=== PATIENT | male | born 1990 | race Two or more races ===

== ENCOUNTER 2024-03-25 13:13 | Emergency (ER) | payer OTHER ==
[~2024-03-25] VITALS: Ht 175.3 cm; Wt 77.6 kg
[2024-03-25 14:25] LABS: Chloride 103 mmol/L (98-107); Potassium 3.5 mmol/L (3.5-5.1); Sodium 140 mmol/L (136-145)
[2024-03-25 14:26] LABS: Anion Gap 8 (5-15); Carbon Dioxide 29 mmol/L (20-31)
[2024-03-25 14:27] LABS: Calcium 10.1 mg/dL (8.7-10.4)
[2024-03-25 14:31] LABS: BUN/Creatinine Ratio 8.8 (10.0-20.0); Blood Urea Nitrogen 8 mg/dL (9-23); Glucose 106 mg/dL (74-106)
[2024-03-25 14:34] LABS: Urine Bacteria None Seen /hpf (None Seen)
[2024-03-25 14:44] LABS: Basophils # (auto) 0 10 ^3/uL (0-0.2); Basophils % (auto) 0.3 % (0.0-2.0); Eosinophils # (auto) 0 10 ^3/uL (0-0.8); Eosinophils % (auto) 0.2 % (0.0-7.0); Hematocrit 47.4 % (41.0-53.0); Lymphocytes # (auto) 0.5 10 ^3/uL (0.4-5.4); Lymphocytes % (auto) 7.6 % (10.0-50.0); Mean Corpuscular Hemoglobin 31.2 pg (28.0-32.0); Mean Corpuscular Volume 86.8 fL (80.0-100.0); Monocytes # (auto) 0.4 10 ^3/uL (0-1.3); Monocytes % (auto) 5.8 % (0.0-12.0); Neutrophils # (auto) 5.8 10 ^3/uL (1.6-8.6); Neutrophils % (auto) 86.1 % (37.0-80.0); Nucleated Red Blood Cells % 0.4 %; Platelet Count (auto) 173 10^3/uL (140-450); Red Blood Cells 5.46 10^6/uL (4.5-5.90); Red Cell Distribution Width 13.6 % (11.8-14.3); White Blood Cell 6.7 10^3/uL (4.4-10.8)
[2024-03-25 15:04] LABS: Urine Blood TRACE /uL (Negative); Urine Clarity Clear (Clear); Urine Color Light-Yellow (Yellow); Urine Protein, UAD Negative (Negative); Urine Specific Gravity 1.012 (1.001-1.035); Urine Urobilinogen 3 mg/dL (Negative); Urine WBC <1 /hpf (0 - 3)
[2024-03-25] MEDS: KETOROLAC TROMETH 30 MG/ML 1ML VIAL IV ONE (15:16)
[2024-03-25 15:19] VITALS: BP 129/82; PULSE 100; RESP 19; TEMP 98.9; O2SAT 98
[2024-03-25] MEDS ORDERED: PANT40TA2 PO (15:27)
[2024-03-25] MEDS ORDERED: ZOFR4T PO (15:27)
== END 2024-03-25 15:46 | disposition home or self-care (01) ==
LOC: ER 13:19
DX: R10.9 Unspecified abdominal pain (principal); R50.9 Fever, unspecified; R51.9 Headache, unspecified; Z90.89 Acquired absence of other organs; Z79.899 Other long term (current) drug therapy; Z98.890 Other specified postprocedural states
CPT/HCPCS: 36415; 74176; 80048; 81001; 85025; 96374; 99285; J1885